=== PATIENT | female | born 1990 | race Caucasian/White ===

== ENCOUNTER 2016-06-16 21:32 | Emergency (ER) | payer MEDICAID, OTHER ==
[2016-06-16 21:49] VITALS: RESP 16; TEMP 98.1; O2SAT 96
[2016-06-16] MEDS ORDERED: IBUPROFEN 600 MG TAB PO ONE ×2 (22:39→22:45)
--- NOTE | 2016-06-16 22:52 | DX ---
Right thumb series 3 views 2156 hours. History: Hyperextension injury. Findings: Right thumb is intact without evidence of fracture. Joint spaces are normal. Soft tissues a re unremarkable. Impression: Normal right thumb series.
[2016-06-16] MEDS ORDERED: HYDROCOD/APAP 5/325 PREPACK#6 BTL TAKEHOME ONE (23:05)
--- NOTE | 2016-06-16 23:05 | EDPHY ---
H & P Time Seen by Provider: 06/16/16 22:01 HPI/ROS: CHIEF COMPLAINT: right thumb pain HISTORY OF PRESENT ILLNESS: 25-year-old female presents to the emergency department complaining of right thumb pain. 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 Patient is [id number], she reports pain with any movement of this thumb. She denies previous injury to this thumb, no numbness or tingling to this hand, no other complaints. Smoking Status: Never smoked Physical Exam: GEN: Awake, alert, oriented, no acute distress RESP: nl resp effort MSK: Right thumb with no swelling, tenderness to palpation over UCL insertion, unable to tell if there is laxity as patient is not able to tolerate the exam due to pain. No tenderness to IP joint, full range of motion of right wrist, sensation intact to light touch, cap refill less than 2 seconds, 2+ radial pulse SKIN: No break in skin Constitutional: Initial Vital Signs Temperature (C) 36.7 C 06/16/16 21:42 Heart Rate 80 06/16/16 21:42 Respiratory Rate 16 06/16/16 21:42 Blood Pressure 135/96 H 06/16/16 21:42 O2 Sat (%) 96 06/16/16 21:42 O2 Delivery Mode Room Air Allergies/Adverse Reactions: No Known Allergies Allergy (Verified 06/16/16 21:49) Home Medications: Medication Instructions Recorded NK [No Known Home Meds] 06/16/16 MDM/Departure - MDM Diagnostics: Thumb x-ray independently reviewed by me- Impression: Normal right thumb series. Dictated By: Ashok Roblero MD - Depart Disposition: Home, Routine, Self-Care Clinical Impression: Sprain of right thumb Qualifiers: Encounter type: initial encounter Qualifier Code: (S63.601A) Unspecified sprain of right thumb, initial encounter Condition: Good Instructions: Skier's Thumb (ED) Additional Instructions: Rest, ice, elevate, take 600mg of ibuprofen every 8 hours with food for 3-5 days as needed for pain and swelling. Take [place] for severe pain. Wear your Velcro thumb splint until you follow up with the hand doctor. Call to schedule this appointment tomorrow to be seen in the next 5-7 days. Return to the emergency department for any numbness, tingling, discoloration of you limb or other concerns. Stand Alone Forms: Work Comp Follow Up, Work Limited Duty Referrals: Mike Rivera MD [Medical Doctor] - As per Instructions (Orthopedist on-call )
[2016-06-16 23:39] VITALS: BP 118/60; PULSE 85
== END 2016-06-16 23:38 | disposition home or self-care (01) ==
DX: S63.601A Unspecified sprain of right thumb, initial encounter (principal); X58.XXXA Exposure to other specified factors, initial encounter; Y92.239 Unspecified place in hospital as the place of occurrence of the external cause; Y99.0 Civilian activity done for income or pay; Y93.89 Activity, other specified
CPT/HCPCS: A4565; L3807

== ENCOUNTER 2016-07-22 17:11 | Emergency (ER) | payer SELFPAY ==
[2016-07-22 17:24] VITALS: TEMP 98.6
--- NOTE | 2016-07-22 19:25 | EDPHY ---
H & P Time Seen by Provider: 07/22/16 19:20 HPI/ROS: Chief complaint. Abdominal pain HPI. 25-year-old female 3 day history of abdominal pain. Her pain is in particular right upper quadrant and lower right quadrant of her abdomen and sharp. At times her whole stomach resendez. Nausea and vomiting but no diarrhea. Tried meds for acid reflux without relief. It hurts to walk and move. No urinary symptoms ROS Constitutional. no fever/chills, no weakness Eyes. no problems with vision ENT. no sore throat, no nasal drainage Cardiovascular. no chest pain Respiratory. no shortness of breath, no cough Abdominal. no abdominal pain, no nausea/vomiting, no diarrhea . no problems urinating MS. no calf pain/swelling, no neck/back pain, no joint pain Skin. no rash Lymph. no swollen glands Neuro. no headache, no dizziness, no difficulty walking or with speech Smoking Status: Never smoked Constitutional: Initial Vital Signs Temperature (C) 37 C 07/22/16 17:21 Heart Rate 72 07/22/16 17:21 Respiratory Rate 18 07/22/16 17:21 Blood Pressure 151/90 H 07/22/16 17:21 O2 Sat (%) 96 07/22/16 17:21 O2 Delivery Mode Room Air Allergies/Adverse Reactions: No Known Allergies Allergy (Verified 07/22/16 17:21) Home Medications: Medication Instructions Recorded oxyCODONE/APAP 5/325 [Percocet 1 tab PO Q4-6PRN PRN #14 tab 07/22/16 5/325] Medical Decision Making - Diagnostics Imaging: Ultrasound of gallbladder and appendix are nondiagnostic CT abdomen and pelvis with IV contrast reviewed by me and discussed with S1 knee shows a normal appendix and some evidence of mesenteric adenitis. Consistent with constipation - Data Points Laboratory Results: Laboratory Results 07/22/16 19:30 07/22/16 19:30 07/22/16 19:30 WBC 10.78 H 10^3/uL (3.80-9.50) RBC 5.04 10^6/uL (4.18-5.33) Hgb 14.6 g/dL (12.6-16.3) Hct 43.7 % (38.0-47.0) MCV 86.7 fL (81.5-99.8) MCH 29.0 pg (27.9-34.1) MCHC 33.4 g/dL (32.4-36.7) RDW 13.2 % (11.5-15.2) Plt Count 347 10^3/uL (150-400) MPV 9.5 fL (8.7-11.7) Neut % (Auto) 55.3 % (39.3-74.2) Lymph % (Auto) 37.4 % (15.0-45.0) [place]oard % (Auto) 4.5 % (4.5-13.0) Eos % (Auto) 2.1 % (0.6-7.6) Baso % (Auto) 0.3 % (0.3-1.7) Nucleat RBC Rel Count 0.0 % (0.0-0.2) Absolute Neuts (auto) 5.97 10^3/uL (1.70-6.50) Absolute Lymphs (auto) 4.03 H 10^3/uL (1.00-3.00) Absolute Monos (auto) 0.48 10^3/uL (0.30-0.80) Absolute Eos (auto) 0.23 10^3/uL (0.03-0.40) Absolute Basos (auto) 0.03 10^3/uL (0.02-0.10) Absolute Nucleated RBC 0.00 10^3/uL (0-0.01) Immature Gran % 0.4 % (0.0-1.1) Immature Gran # 0.04 10^3/uL (0.00-0.10) Sodium 139 mEq/L (134-144) Potassium 4.3 mEq/L (3.5-5.2) Chloride 104 mEq/L (97-110) Carbon Dioxide 24 mEq/l (22-31) Anion Gap 11 mEq/L (8-16) BUN 13 mg/dL (7-23) Creatinine 0.6 mg/dL (0.6-1.0) Estimated GFR > 60 Glucose 85 mg/dL (70-100) Calcium 9.3 mg/dL (8.5-10.4) Lipase 55.0 IU/L (23-300) Beta HCG, Qual NEGATIVE Medications Given: Discontinued Medications Fentanyl (Sublimaze) 50 mcg IVP EDNOW ONE Stop: 07/22/16 19:40 Last Admin: 07/22/16 19:41 Dose: 50 mcg Fentanyl (Sublimaze) 50 mcg IVP EDNOW ONE Stop: 07/22/16 21:12 Last Admin: 07/22/16 21:12 Dose: 50 mcg Hydromorphone HCl (Dilaudid) 0.5 mg IVP EDNOW ONE Stop: 07/22/16 21:46 Last Admin: 07/22/16 22:03 Dose: 0.5 mg Sodium Chloride (Ns) 1,000 mls @ 0 mls/hr IV ONCE ONE PRN Reason: Wide Open Stop: 07/22/16 19:36 Last Admin: 07/22/16 19:39 Dose: 1,000 mls Ondansetron HCl (Zofran) 4 mg IVP EDNOW ONE Stop: 07/22/16 19:40 Last Admin: 07/22/16 19:41 Dose: 4 mg Departure - Departure Disposition: Home, Routine, Self-Care Clinical Impression: Abdominal pain Qualifiers: Abdominal location: right lower quadrant Qualifier Code: (R10.31) Right lower quadrant pain Condition: Good Instructions: Constipation (ED), High Fiber Diet (ED) Additional Instructions: Increased fluids including fruit and prune juice. Liliana colace, Magnesium citrate from pharmacy. Percocet as needed for pain. Return for worsening symptoms. Recheck in 1 day if not better Stand Alone Forms: Work Excuse Prescriptions: oxyCODONE/APAP 5/325 [Percocet 5/325] 1 tab PO Q4-6PRN PRN #14 tab PRN Reason: Pain, Moderate
[2016-07-22] MEDS ORDERED: fentaNYL 100 MCG/2 ML INJ ONE (19:27)
[2016-07-22] MEDS ORDERED: ONDANSETRON 4 MG/2 ML VIAL ONE (19:27)
[2016-07-22] MEDS ORDERED: NS 1,000 ML IV ONE (19:35)
[2016-07-22] MEDS ORDERED: ONDANSETRON 4 MG/2 ML VIAL IVP ONE (19:39)
[2016-07-22] MEDS ORDERED: fentaNYL 100 MCG/2 ML INJ IVP ONE ×2 (19:39→21:11)
[2016-07-22 19:40] LABS: % IMMATURE GRANULYOCYTES 0.4 % (0.0-1.1); ABSOLUTE IMMATURE GRANULOCYTES 0.04 10^3/uL (0.00-0.10); ADD DIFF? NO; ADD MORPH? NO; ADD SCAN? NO; ATYPICAL LYMPHOCYTE FLAG 10 (0-99); FRAGMENT RBC FLAG 0 (0-99); HEMATOCRIT 43.7 % (38.0-47.0); HEMOGLOBIN 14.6 g/dL (12.6-16.3); LEFT SHIFT FLG 0 (0-99); LIPEMIA HEMOLYSIS FLAG 80 (0-99); MEAN CELL HEMOGLOBIN CONCENTR. 33.4 g/dL (32.4-36.7); MEAN CELL VOLUME 86.7 fL (81.5-99.8); MEAN PLATELET VOLUME 9.5 fL (8.7-11.7); PLATELET CLUMPS FLAG 10 (0-99); PLATELET COUNT 347 10^3/uL (150-400); RED BLOOD CELL COUNT 5.04 10^6/uL (4.18-5.33); RED CELL DISTRIBUTION WIDTH 13.2 % (11.5-15.2)
[2016-07-22 19:42] VITALS: RESP 16
[2016-07-22 20:06] LABS: ANION GAP 11 mEq/L (8-16); CALCIUM 9.3 mg/dL (8.5-10.4); CARBON DIOXIDE 24 mEq/l (22-31); CHLORIDE 104 mEq/L (97-110); CREATININE 0.6 mg/dL (0.6-1.0); GLOMERULAR FILTRATION RATE > 60; GLUCOSE 85 mg/dL (70-100); POTASSIUM 4.3 mEq/L (3.5-5.2); SODIUM 139 mEq/L (134-144)
--- NOTE | 2016-07-22 21:05 | US ---
Ultrasound of the Abdomen Limited History: Right abdominal pain. Comparison: None. Findings Gallbladder: Contracted gallbladder. No definite shadowing calculi, wall thickening, or pericholecy stic fluid. Common bile duct is 5 mm in diameter, which is normal. Liver: Diffusely increased in echogenicity, with limited evaluation of the parenchyma. The liver rey sures 19 cm in length. Main portal vein is patent. Renal: Right kidney measures 12.6 x 4.6 x 5.3 cm, without hydronephrosis. Pancreas: Obscured by bowel gas. Aorta: Visualized upper abdominal aorta demonstrates no aneurysm. Imaging of the right lower quadrant was performed, and the appendix is not identified. Limited due t o large patient body habitus. Impression: 1. Contracted gallbladder, without cholelithiasis or biliary ductal dilation. 2. Hepatic steatosis and hepatomegaly, with limited evaluation of the hepatic parenchyma. 3. Appendix not identified. Findings and recommendations discussed with Emergency Department physician, Michael Mendoza M.D., at 2055 hours, on July 22, 2016. Final report concurs with initial preliminary interpretation.
[2016-07-22] MEDS ORDERED: IOPAMIDOL (ISOVUE-300) 100 ML BTL IV ONE (21:16)
[2016-07-22] MEDS ORDERED: HYDROmorphONE/DILAUDID 1 MG/ML SYR ONE (21:45)
[2016-07-22] MEDS ORDERED: HYDROmorphONE/DILAUDID 1 MG/ML SYR IVP ONE (21:45)
--- NOTE | 2016-07-22 22:02 | CT ---
CT Scan of the Abdomen and Pelvis (With Contrast) at 2123 hours History: Right abdominal pain. Comparison: April 2016. Technique: Axial computed tomographic images of the abdomen and pelvis were obtained with the unevent ful intravenous administration of 99 mL Isovue-300 contrast. No oral or rectal contrast which limits the study. Dose reduction techniques were utilized. CT Abdomen Findings: Lung bases: Normal. Liver: Fatty steatosis and mild hepatomegaly without focal lesions. Biliary system: No obstruction. Spleen: Normal. Pancreas: Normal. Adrenals: Normal. Kidneys: No obstruction or solid masses.. In the lower pole calyx left kidney there is a 5 mm nonobst ructing calyceal calculus, image 144 series 4. Abdominal Aorta: No aneurysm. No bowel obstruction or ascites. A few right pericecal lymph nodes up to 13 mm in size similar to pre vious study. Moderate stool throughout the colon. Equalization of the terminal ileum. CT Pelvis Findings: Adnexa appears normal without inflammatory changes. No adnexal masses. No evidenc e of diverticulitis or colitis. No pneumoperitoneum. Impression: 1. Constipation. 2. No CT evidence of appendicitis, abscess or bowel obstruction. 3. A few right-sided mesenteric lymph nodes which may represent mild mesenteric lymphadenitis similar to previous study. 4. Nonobstructive left nephrolithiasis. No right nephrolithiasis. 5. Hepatomegaly and hepatic steatosis. Findings and recommendations discussed with Emergency Department physician, TACOS WILLAMS at 2200 h our, 07/22/2016. Final report concurs with initial preliminary interpretation.
[2016-07-22] MEDS ORDERED: OXYCODONE/APAP 5/325MG PREPACK#4 BTL TAKEHOME ONE (22:35)
[2016-07-22 23:21] VITALS: BP 113/79; PULSE 78; O2SAT 96
== END 2016-07-22 23:18 | disposition home or self-care (01) ==
DX: R10.31 Right lower quadrant pain (principal)
CPT/HCPCS: 96374; J1170; J2405; J3010; Q9967